=== PATIENT | male | born 1940 | race Caucasian/White ===

== ENCOUNTER 2016-09-14 11:06 | Emergency (ER) | payer MEDICARE, BC ==
[2016-09-14 11:22] VITALS: BP 140/64
--- NOTE | 2016-09-14 12:11 | EDM.PDOC ---
ED HPI GENERAL MEDICAL PROBLEM - General Chief Complaint: Back Pain or Injury Stated Complaint: BACK PAIN Time Seen by Provider: 09/14/16 11:45 Source of Information: Reports: Patient, Family History Limitations: Reports: No Limitations - History of Present Illness INITIAL COMMENTS - FREE TEXT/NARRATIVE: 76-year-old male was bending forward this morning and felt a moderate pop in his lower left back and it was very painful. It has settled down some, no numbness down his leg and no incontinence. This has been a recurring problem over the past several months. The pain was particularly bad this morning and he was wondering if he could get something to help. He already takes Aleve once daily. He also participates in physical therapy. Onset: Sudden Location: Reports: Back (Low left lumbar area) Left Lower Back Pain Score (Numeric/FACES): 10 - Related Data Allergies Allergy/AdvReac Type Severity Reaction Status Date / Time diagnostic x ray materials Allergy Nausea and Uncoded 09/14/16 11:23 Vomiting shellfish Allergy Nausea and Uncoded 09/14/16 11:23 Vomiting Home Meds: Home Meds Acetaminophen/Diphenhydramine [Acetaminophen-Diphenhyd 500-25] 1 tab PO PRN [History] Aspirin 81 mg PO DAILY 10/08/13 [History] Atenolol [Tenormin] 50 mg PO DAILY 10/08/13 [History] Fish Oil/Borage/Flax/Om3,6,9#1 [[place] 3-6-9 Complex Softgel] 2,000 mg PO DAILY 10/08/13 [History] Multivit with Calcium,Iron,Min [One Daily Maximum] 1 each PO DAILY 10/08/13 [ History] Naproxen Sodium [Aleve] 2 tab PO DAILY PRN 10/08/13 [History] Simvastatin 40 mg PO DAILY 10/08/13 [History] Cholecalciferol (Vitamin D3) [Vitamin D3] 1,000 unit PO DAILY 10/10/13 [History] Fluticasone Propionate [Flonase Allergy Relief] 1 dose IRMA ASDIRECTED 09/14/16 [ History] Meclizine [Antivert] 25 mg PO ASDIRECTED 09/14/16 [History] Naltrexone 25 mg PO BID 09/14/16 [History] Rutin 250 mg PO DAILY 09/14/16 [History] buPROPion [buPROPion XL] 1 tab PO DAILY 09/14/16 [History] Past Medical History HEENT History: Reports: Hard of Hearing, Impaired Vision Cardiovascular History: Reports: High Cholesterol, Hypertension Respiratory History: Reports: Sleep Apnea Musculoskeletal History: Reports: Back Pain, Chronic - Past Surgical History HEENT Surgical History: Reports: Other (See Below) Other HEENT Surgeries/Procedures: left ear drum surgery GI Surgical History: Reports: Colonoscopy Social & Family History - Tobacco Use Smoking Status *Q: Never Smoker Years of Tobacco use: 30 Used Tobacco, but Quit: Yes Month Tobacco Last Used: March Second Hand Smoke Exposure: No - Alcohol Use Days Per Week of Alcohol Use: 5 Number of Drinks Per Day: 1 Total Drinks Per Week: 5 - Recreational Drug Use Recreational Drug Use: No ED ROS GENERAL - Review of Systems Review Of Systems: See Below Constitutional: Denies: Fever, Chills HEENT: Reports: No Symptoms Respiratory: Denies: Shortness of Breath Cardiovascular: Denies: Chest Pain Musculoskeletal: Reports: Back Pain Neurological: Reports: Other (Been having some balance issues, worked up for Parkinson's) ED EXAM,LOWER BACK PAIN/INJURY - Physical Exam Exam: See Below Exam Limited By: No Limitations General Appearance: Alert, No Apparent Distress Respiratory/Chest: No Respiratory Distress, Lungs Clear Cardiovascular: Regular Rate, Rhythm Back Exam: Paraspinal Tenderness (Some paraspinal tenderness to palpation over the left lumbar area, worse with rotation against resistance to the right. No lower extremity symptoms, radiculopathy or deficits) Course - Vital Signs Last Recorded V/S: Last Vital Signs Temp 96.8 F 09/14/16 11:22 Pulse 61 09/14/16 11:22 Resp 16 09/14/16 11:22 BP 140/64 09/14/16 11:22 Pulse Ox 95 09/14/16 11:22 - Re-Assessments/Exams Free Text/Narrative Re-Assessment/Exam: 09/14/16 12:08 Patient can continue his anti-inflammatory treatment, was given 15 hydrocodone to use sparingly for extra pain control and should try to stay active. He will recheck tomorrow if worsening, especially if he develops radiculopathy or deficits and we discussed those symptoms. Departure - Departure Time of Disposition: 12:19 Disposition: Home, Self-Care 01 Condition: Good Clinical Impression: Acute exacerbation of chronic low back pain - Discharge Information Instructions: Back Pain, Adult, [id number] Referrals: Dulce Sage MD [Primary Care Provider] - Forms: ED Department Discharge Care Plan Goals: Continue your regular medications and add stronger pain medication sparingly if needed. Increase activity as tolerated, and return for recheck if worsening at any time.
== END 2016-09-14 12:19 | disposition home or self-care (01) ==
LOC: JP.ED 11:06
DX: G89.29 Other chronic pain (principal); M54.5 Low back pain; I10 Essential (primary) hypertension; E78.00 Pure hypercholesterolemia, unspecified; Z79.82 Long term (current) use of aspirin; Z79.899 Other long term (current) drug therapy; Z91.013 Allergy to seafood; Z88.8 Allergy status to other drugs, medicaments and biological substances
CPT/HCPCS: 99283

== ENCOUNTER 2016-10-05 10:33 | Emergency (ER) | payer MEDICARE, BC ==
[2016-10-05 10:49] VITALS: BP 139/73
[2016-10-05] MEDS ORDERED: HYDROmorphone 1 MG/ML Syringe IM ONE (11:18)
[2016-10-05] MEDS ORDERED: Cyclobenzaprine 10 MG Tab PO ONE (11:19)
--- NOTE | 2016-10-05 11:23 | EDM.PDOC ---
ED HPI GENERAL MEDICAL PROBLEM - General Chief Complaint: Back Pain or Injury Stated Complaint: BACK PAIN Time Seen by Provider: 10/05/16 11:23 Source of Information: Reports: Patient, Family History Limitations: Reports: No Limitations - History of Present Illness INITIAL COMMENTS - FREE TEXT/NARRATIVE: pt arrived with increased pain in the lower back. he has not had recent trauma to the back. He was doing his exercises and turned the wrong way. He has alot of pain below the beltline on the rt side. Onset: Today, Other (pt did have similar pain about 2 weeks ago. ) Duration: Hour(s):, Getting Worse Location: Reports: Back Severity: Moderate Associated Symptoms: Reports: No Other Symptoms, Other (pt does not have weakness in his legs or tingling. ) Lower Back Pain Score (Numeric/FACES): 10 - Related Data Allergies Allergy/AdvReac Type Severity Reaction Status Date / Time diagnostic x ray materials Allergy Nausea and Uncoded 10/05/16 10:52 Vomiting shellfish Allergy Nausea and Uncoded 10/05/16 10:52 Vomiting Home Meds: Home Meds Acetaminophen/Diphenhydramine [Acetaminophen-Diphenhyd 500-25] 1 tab PO BEDTIME PRN 10/08/13 [History] Aspirin 81 mg PO DAILY 10/08/13 [History] Atenolol [Tenormin] 50 mg PO BID 10/08/13 [History] Fish Oil/Borage/Flax/Om3,6,9#1 [[place] 3-6-9 Complex Softgel] 2,000 mg PO DAILY 10/08/13 [History] Naproxen Sodium [Aleve] 2 tab PO DAILY PRN 10/08/13 [History] Simvastatin 40 mg PO DAILY 10/08/13 [History] Cholecalciferol (Vitamin D3) [Vitamin D3] 1,000 unit PO DAILY 10/10/13 [History] Meclizine [Antivert] 25 mg PO ASDIRECTED 09/14/16 [History] Naltrexone 25 mg PO BID 09/14/16 [History] Rutin 250 mg PO DAILY 09/14/16 [History] buPROPion [buPROPion XL] 1 tab PO DAILY 09/14/16 [History] Past Medical History HEENT History: Reports: Hard of Hearing, Impaired Vision Cardiovascular History: Reports: High Cholesterol, Hypertension Respiratory History: Reports: Sleep Apnea Musculoskeletal History: Reports: Back Pain, Chronic - Infectious Disease History Infectious Disease History: Reports: Chicken Pox, Measles, Mumps - Past Surgical History HEENT Surgical History: Reports: Other (See Below) Other HEENT Surgeries/Procedures: left ear drum surgery GI Surgical History: Reports: Colonoscopy Social & Family History - Tobacco Use Smoking Status *Q: Former Smoker Years of Tobacco use: 30 Used Tobacco, but Quit: Yes Month Tobacco Last Used: Janurary Tobacco Use Comment: Quit in 1975 Second Hand Smoke Exposure: No - Caffeine Use Caffeine Use: Reports: Coffee, Soda - Alcohol Use Days Per Week of Alcohol Use: 7 Number of Drinks Per Day: 1 Total Drinks Per Week: 7 - Recreational Drug Use Recreational Drug Use: No ED ROS GENERAL - Review of Systems Review Of Systems: See Below Constitutional: Reports: No Symptoms HEENT: Reports: No Symptoms Respiratory: Reports: No Symptoms Cardiovascular: Reports: No Symptoms Endocrine: Reports: No Symptoms GI/Abdominal: Reports: No Symptoms : Reports: No Symptoms Musculoskeletal: Reports: Other (pt is having severe lower back pain just below the belt line. He has more pain on the rt side. He does not have numbness or tingling going down the rt leg. ) ED EXAM,LOWER BACK PAIN/INJURY - Physical Exam Exam: See Below Text/Narrative:: pt has pain in the rt lumbar area just below the belt line. Exam Limited By: No Limitations General Appearance: Alert, Anxious, Moderate Distress Ears: Normal External Exam Nose: Normal Inspection Throat/Mouth: Normal Inspection Head: Atraumatic Neck: Normal Inspection Respiratory/Chest: No Respiratory Distress Cardiovascular: Normal Peripheral Pulses GI/Abdominal: Normal Bowel Sounds (Male) Exam: Deferred Rectal (Males) Exam: Deferred Back Exam: Other (pt has tenderness at the l2-l3 area. He has a positive straight leg raising on the rt side. ) Course - Vital Signs Last Recorded V/S: Last Vital Signs Temp 34.8 C L 10/05/16 11:03 Pulse 60 10/05/16 11:03 Resp 16 10/05/16 11:03 BP 139/73 10/05/16 11:03 Pulse Ox 97 10/05/16 11:03 - Orders/Labs/Meds Orders: Active Orders 24 hr Category Date Time Status Lumbar Spine Min 4V [CR] Stat Exams 10/05/16 11:20 Taken Meds: Medications Discontinued Medications Generic Name Dose Route Start Last Admin Trade Name Jevon PRN Reason Stop Dose Admin Cyclobenzaprine HCl 10 mg 10/05/16 11:19 10/05/16 11:28 Flexeril PO 10/05/16 11:20 10 mg ONETIME ONE Administration Hydromorphone HCl 1 mg 10/05/16 11:18 10/05/16 11:28 Dilaudid IM 10/05/16 11:19 1 mg ONETIME ONE Administration - Re-Assessments/Exams Free Text/Narrative Re-Assessment/Exam: 10/05/16 12:40 pt arrived with pain in the lumbar area just below the belt line. He has no known injury. 10/05/16 12:51 Departure - Departure Time of Disposition: 12:42 Disposition: Home, Self-Care 01 Condition: Fair Clinical Impression: Arthritis, lumbar spine - Discharge Information Forms: ED Department Discharge Care Plan Goals: heat and ice to the area, appt with Dr Jaimes in 4-5 days, flexeril 10mg hs, motrin 600mg qid, norco 5/325 q6h prn for pain. - My Orders Last 24 Hours: My Active Orders 10/05/16 11:20 Lumbar Spine Min 4V [CR] Stat - Assessment/Plan Last 24 Hours: My Active Orders 10/05/16 11:20 Lumbar Spine Min 4V [CR] Stat
--- NOTE | 2016-10-05 12:54 | CR ---
Lumbar Spine Min 4V INDICATION: severe lumbar pain. FINDINGS: 5 lumbar type vertebral bodies. Diffuse degenerative endplate hypertrophic changes. Modera te degenerative arthritis throughout the lumbar facet joints. Arterial calcifications. Moderate stoo l throughout colon.
== END 2016-10-05 13:08 | disposition home or self-care (01) ==
LOC: JP.ED 10:33
DX: M46.96 Unspecified inflammatory spondylopathy, lumbar region (principal); E78.00 Pure hypercholesterolemia, unspecified; I10 Essential (primary) hypertension; Z87.891 Personal history of nicotine dependence; Z79.899 Other long term (current) drug therapy; Z79.82 Long term (current) use of aspirin; Z91.013 Allergy to seafood; Z91.09 Other allergy status, other than to drugs and biological substances
CPT/HCPCS: 72110; 96372; 99284; A9270; J1170; 99283

== ENCOUNTER 2019-07-21 22:24 | Inpatient (IN) | payer BC, MEDICARE ==
--- NOTE | 2019-07-21 23:18 | EDM.PDOC ---
ED HPI GENERAL MEDICAL PROBLEM - General Chief Complaint: Abdominal Pain Stated Complaint: RIGHT SIDE PAIN Time Seen by Provider: 07/21/19 23:09 Source of Information: Reports: Patient History Limitations: Reports: No Limitations - History of Present Illness INITIAL COMMENTS - FREE TEXT/NARRATIVE: Patient presents describing 24 hours of right lower quadrant pain which is unremitting. It began gradually yesterday afternoon, 19 July. He has a history of Parkinson's disease and does get constipation from time to time. He got a dose of MiraLAX yesterday and today with a small bowel movement earlier today but no change in his pain. He rates his pain a 7/10 at this time and it is focused in the right lower quadrant region. There is a lesser intensity of pain along the right flank and the right upper quadrant. No nausea or vomiting. He doesn't feel warm himself but was noted to have a temperature in the mid 99's. Because of persistence of symptoms, he was concerned this might be appendicitis. Onset: Gradual Onset Date: 07/20/19 Duration: Day(s): (Two) Location: Reports: Abdomen Quality: Reports: Ache, Burning, Sharp Severity: Moderate Improves with: Reports: None Worsens with: Reports: Movement Associated Symptoms: Reports: No Other Symptoms Right Lower Abdomen Pain Score (Numeric/FACES): 7 - Related Data Allergies Allergy/AdvReac Type Severity Reaction Status Date / Time Iodinated Contrast Media AdvReac Nausea and Verified 07/21/19 22:53 [Iodinated Contrast- Oral Vomiting and IV Dye] shellfish derived AdvReac Nausea and Verified 07/21/19 22:53 Vomiting Home Meds: Home Meds Aspirin 81 mg PO DAILY 10/08/13 [History] Fish Oil/Borage/Flax/Om3,6,9 1 [[place] 3-6-9 Complex Softgel] 2,000 mg PO DAILY 10/08/13 [History] Simvastatin 40 mg PO DAILY 10/08/13 [History] Cholecalciferol (Vitamin D3) [Vitamin D3] 5,000 unit PO DAILY 10/10/13 [History] Rutin 250 mg PO DAILY 09/14/16 [History] buPROPion [buPROPion XL] 1 tab PO DAILY 09/14/16 [History] Acetaminophen [Tylenol Extra Strength] 2 tab PO Q4H PRN 10/19/16 [History] Carbidopa/Levodopa [Sinemet 25-100 mg Tablet] 1 tab PO DAY 07/21/19 [History] Lutein 1 tab PO DAILY 07/21/19 [History] Memantine [Namenda] 1 tab PO BID 07/21/19 [History] Rivastigmine Tartrate [Rivastigmine] 1 tab PO BID 07/21/19 [History] atenoloL [Atenolol] 50 mg PO BID 07/21/19 [History] clonazePAM [Clonazepam] 1 tab PO BEDTIME 07/21/19 [History] Past Medical History HEENT History: Reports: Hard of Hearing, Impaired Vision Cardiovascular History: Reports: High Cholesterol, Hypertension Respiratory History: Reports: Sleep Apnea Musculoskeletal History: Reports: Back Pain, Chronic - Infectious Disease History Infectious Disease History: Reports: Chicken Pox, Measles, Mumps - Past Surgical History HEENT Surgical History: Reports: Other (See Below) Other HEENT Surgeries/Procedures: left ear drum surgery GI Surgical History: Reports: Colonoscopy Social & Family History - Tobacco Use Smoking Status *Q: Former Smoker Years of Tobacco use: 20 Packs/Tins Daily: 1 Used Tobacco, but Quit: Yes Month/Year Tobacco Last Used: 1995 - Caffeine Use Caffeine Use: Reports: Coffee, Soda, Tea - Recreational Drug Use Recreational Drug Use: No ED ROS GENERAL - Review of Systems Review Of Systems: See Below Constitutional: Reports: Fever, Malaise. Denies: Night Sweats Respiratory: Reports: No Symptoms Cardiovascular: Reports: No Symptoms GI/Abdominal: Reports: Abdominal Pain, Constipation. Denies: Diarrhea, Distension : Reports: No Symptoms Skin: Reports: No Symptoms Neurological: Reports: No Symptoms Hematologic/Lymphatic: Denies: Easy Bleeding, Easy Bruising ED EXAM, GI/ABD - Physical Exam Exam: See Below Exam Limited By: No Limitations General Appearance: Alert, Mild Distress Head: Atraumatic Neck: Normal Inspection Respiratory/Chest: No Respiratory Distress, Lungs Clear Cardiovascular: Regular Rate, Rhythm GI/Abdominal Exam: Normal Bowel Sounds, Guarding, Tender (Right lower quadrant.) . No: Distended, Rigid Extremities: Normal Inspection Neurological: Alert, Oriented, Other (Minimal tremor in fingers of the left hand.) Course - Vital Signs Last Recorded V/S: Last Vital Signs Temp 37.7 C 04/27/20 22:51 Pulse 69 07/21/19 22:51 Resp 16 07/21/19 22:51 BP 148/60 H 07/21/19 22:51 Pulse Ox 95 07/21/19 22:51 - Orders/Labs/Meds Orders: Active Orders 24 hr Category Date Time Status Abdomen Pelvis w Cont [CT] Stat Exams 07/21/19 23:21 Ordered C-REACTIVE PROTEIN [CHEM] Stat Lab 07/21/19 23:20 Ordered CBC WITH AUTO DIFF [HEME] Stat Lab 07/21/19 23:20 Ordered COMPREHENSIVE METABOLIC PN,CMP [CHEM] Stat Lab 07/21/19 23:20 Ordered Sodium Chloride 0.9% [Saline Flush] Med 07/21/19 23:22 Ordered 10 ml FLUSH ASDIRECTED PRN Saline Lock Insert [OM.PC] Routine Oth 07/21/19 23:22 Ordered Medication Orders Sodium Chloride (Saline Flush) 10 ml FLUSH ASDIRECTED PRN PRN Reason: Keep Vein Open Last Admin: 07/21/19 23:40 Dose: 10 ml Meds: Medications Generic Name Dose Route Start Last Admin Trade Name Freq PRN Reason Stop Dose Admin Sodium Chloride 10 ml 07/21/19 23:22 07/21/19 23:40 Saline Flush FLUSH 10 ml ASDIRECTED PRN Administration Keep Vein Open Discontinued Medications Generic Name Dose Route Start Last Admin Trade Name Freq PRN Reason Stop Dose Admin Fentanyl 50 mcg 07/21/19 23:20 07/21/19 23:40 Sublimaze IVPUSH 07/21/19 23:21 50 mcg ONETIME ONE Administration - Re-Assessments/Exams Free Text/Narrative Re-Assessment/Exam: 07/21/19 23:25 Patient will be given fentanyl 50 g and see what that does for his pain. CT scanning is pending. 07/22/19 02:14 CT scan eventually was completed and shows appendicitis of the tip of the appendix, the remainder of the proximal appendix is normal in appearance I discussed his case with Dr. Alejandro, the on-call surgeon. Patient will be admitted and have surgery some time on Sunday, 21 July. Initial antibiotic dosing will be done in the emergency department. He was transferred to the floor in stable condition. Departure - Departure Time of Disposition: 01:50 Disposition: Admitted As Inpatient 66 Condition: Fair Clinical Impression: Appendicitis Qualifiers: Appendicitis type: acute appendicitis Acute appendicitis type: unspecified acute appendicitis type Qualified Code(s): K35.80 - Unspecified acute appendicitis - Discharge Information Referrals: Samm Evans MD [Primary Care Provider] - Forms: ED Department Discharge Sepsis Event Note - Evaluation Sepsis Screening Result: No Definite Risk - Focused Exam Vital Signs: Vital Signs Temp Pulse Resp BP Pulse Ox 07/21/19 22:51 37.7 C 69 16 148/60 H 95 07/21/19 22:38 37.7 C 69 16 148/60 H 96 Date Exam was Performed: 07/21/19 Time Exam was Performed: 23:49 - My Orders Last 24 Hours: My Active Orders 07/21/19 23:20 C-REACTIVE PROTEIN [CHEM] Stat CBC WITH AUTO DIFF [HEME] Stat COMPREHENSIVE METABOLIC PN,CMP [CHEM] Stat 07/21/19 23:21 Abdomen Pelvis w Cont [CT] Stat 07/21/19 23:22 Sodium Chloride 0.9% [Saline Flush] 10 ml FLUSH ASDIRECTED PRN Saline Lock Insert [OM.PC] Routine - Assessment/Plan Last 24 Hours: My Active Orders 07/21/19 23:20 C-REACTIVE PROTEIN [CHEM] Stat CBC WITH AUTO DIFF [HEME] Stat COMPREHENSIVE METABOLIC PN,CMP [CHEM] Stat 07/21/19 23:21 Abdomen Pelvis w Cont [CT] Stat 07/21/19 23:22 Sodium Chloride 0.9% [Saline Flush] 10 ml FLUSH ASDIRECTED PRN Saline Lock Insert [OM.PC] Routine
[2019-07-21] MEDS ORDERED: fentaNYL 100 MCG/2 ML SDV IVPUSH ONE (23:20)
[2019-07-21] MEDS ORDERED: Sodium Chloride 0.9% 10 ML Syringe FLUSH PRN (23:22)
[2019-07-21] MEDS ORDERED: diphenhydrAMINE 50 MG/ML SDV IVPUSH ONE (23:57)
[2019-07-22] MEDS ORDERED: Iopamidol 612 MG/ML 500 ML Multipack Bottle IV ONE (01:09)
[2019-07-22] MEDS ORDERED: Sodium Chloride 0.9% 10 ML Syringe FLUSH PRN (01:10)
--- NOTE | 2019-07-22 01:40 | CRLCT ---
INDICATION: Right lower quadrant pain for the past 24 hours. Possible appendicitis. COMPARISON: Ultrasound of the abdomen limited from 10/04/2016 TECHNIQUE: CT examination of the abdomen and pelvis was performed with the uneventful intravenous administration of 135 cc of Isovue-300 while 3 mm thick axial sections were obtained from the lung bases through the pubic symphysis. Oral contrast was not administered. Please note that all CT scans at this facility use dose modulation, iterative reconstruction, and/or weight-based dosing when appropriate to reduce radiation dose to as low as reasonably achievable. FINDINGS: In the abdomen, the liver is seem to have multiple small cysts scattered throughout it, the largest in the anterior subcapsular superior medial segment of the left lobe, segment 4B, measuring 1.7 centimeters in diameter. These are of no clinical significance. The liver is otherwise normal in appearance. The spleen, pancreas, and adrenals are normal in appearance. There is malrotation of the right kidney, with rotation along the craniocaudal axis, with the renal pelvis facing laterally. There is no sign of hydronephrosis related to this malrotation. Incidental note is made of a few small cysts arising from the upper pole of the right kidney. The left kidney is normal in appearance. The gallbladder is normal in appearance. The abdominal aorta is normal in caliber with no sign of dilatation. There is no sign of retroperitoneal mass or adenopathy. The stomach, loops of small bowel, and colon in the abdomen are normal in appearance. There is a tiny fat containing periumbilical hernia. In the pelvis, the appendix is seen to have dilatation of the tip to 2.0 centimeters with thickening and enhancement of its chavez and moderate periappendiceal inflammation. The more proximal portion of the appendix is top normal in caliber at 8 millimeters. There is no sign of any periappendiceal fluid collection, extraluminal gas, free air, or free fluid in the abdomen or pelvis. The loops of small bowel and colon in the pelvis are normal in appearance. The prostate is prominently enlarged and has benign-appearing calcifications. It is otherwise normal in appearance. The urinary bladder is moderately distended and is otherwise normal in appearance. There is no sign of pelvic or inguinal mass or adenopathy. There is no sign of free air or free fluid in the abdomen or pelvis. There is mild linear density in the posterior lung base, consistent with atelectasis. The rest of the lung base is clear. The osseous structures are normal in appearance for the patient`s age. I discussed the findings of acute appendicitis with Dr. Shea at 0133 hours on 07/22/2019. IMPRESSION: CT of the abdomen shows numerous small cysts scattered throughout the liver of no clinical concern. 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 A few tiny cysts are seen in the right kidney of no clinical concern. CT of the pelvis shows acute appendicitis of the tip of the appendix with no sign of any abscess or perforation. Prominent enlargement of the prostate. Please note that all CT scans at this facility use dose modulation, iterative reconstruction, and/or weight-based dosing when appropriate to reduce radiation dose to as low as reasonably achievable. Dictated by Bacilio Roque MD @ Jul 22 2019 1:26AM Signed by Dr. Bacilio Roque @ Jul 22 2019 1:38AM
[2019-07-22] MEDS ORDERED: Sodium Chloride 0.9% 1,000 ML IV SCH (02:00)
[2019-07-22] MEDS ORDERED: Ondansetron 4 MG/2 ML SDV IVPUSH PRN (02:28)
[2019-07-22] MEDS ORDERED: Scopolamine 1.5 MG Transdermal Patch TOP PRN (02:28)
[2019-07-22] MEDS ORDERED: Promethazine 25 MG/ML SDV IV PRN (02:30)
[2019-07-22] MEDS ORDERED: diphenhydrAMINE 50 MG/ML SDV IVPUSH PRN (02:32)
[2019-07-22] MEDS ORDERED: Nicotine 14 MG/24 Hr Patch TRDERM PRN (02:33)
[2019-07-22] MEDS ORDERED: diphenhydrAMINE 25 MG Cap PO PRN (02:33)
[2019-07-22] MEDS ORDERED: fentaNYL 100 MCG/2 ML SDV IV PRN (02:36)
[2019-07-22] MEDS ORDERED: Piperacillin/Tazobactam/Dext 100 ML IV SCH (03:00)
[2019-07-22] MEDS ORDERED: Dextrose 5% in Water 100 ML ONE (03:44)
[2019-07-22] MEDS: Morphine 4 MG/ML Syringe IVPUSH PRN ×3 (03:47→19:24)
[2019-07-22] MEDS: Piperacillin/Tazobactam/Dext 3.375 GM in Premix Bag 1 BAG IV SCH ×3 (10:15→21:12)
[2019-07-22] MEDS: VERIFY SCOP PATCH TOP SCH (10:30)
[2019-07-22] MEDS: [UNRECOGNIZED DRUG - REMARK] TOP SCH (10:30)
[2019-07-22] MEDS: Sodium Chloride 0.9% 1,000 ML IV SCH ×2 (12:24→17:30)
[2019-07-22] MEDS ORDERED: fentaNYL 250 MCG/5 ML SDV ONE (14:06)
[2019-07-22] MEDS ORDERED: Propofol 200 MG/20 ML SDV ONE (14:06)
[2019-07-22] MEDS ORDERED: Glycopyrrolate 0.2 MG/ML 5 ML MDV ONE (14:06)
[2019-07-22] MEDS ORDERED: Dexamethasone 4 MG/ML SDV ONE (14:06)
[2019-07-22] MEDS ORDERED: Ondansetron 4 MG/2 ML SDV ONE (14:06)
[2019-07-22] MEDS ORDERED: Succinylcholine 200 MG/10 ML MDV ONE (14:06)
[2019-07-22] MEDS ORDERED: Rocuronium 50 MG/5 ML Vial ONE (14:06)
[2019-07-22] MEDS ORDERED: Neostigmine Methylsulfate 1 MG/ML 5 ML Syringe ONE (14:06)
[2019-07-22] MEDS: Bupivacaine 0.5%/EPINEPHrine 1:200,000 50 ML MDV ONE ×2 (14:35→15:10)
--- NOTE | 2019-07-22 16:11 | CONS ---
DATE OF SERVICE: 07/22/2019 REFERRING PHYSICIAN: CONSULTING PHYSICIAN: Loyd Alejandro MD REASON FOR CONSULTATION: Abdominal pain. HISTORY OF PRESENT ILLNESS: This is a gentleman who was seen in the emergency room due to right lower quadrant abdominal pain. This is approximately 24-hour history. This is worse. His pain is rated as 8 to 9/10. There is not any associated nausea or vomiting. The patient had a low-grade fever at home. PAST MEDICAL HISTORY: 1. Parkinson disease. 2. Hypertension. 3. Hypercholesterolemia. 4. Back pain. 5. Measles. 6. Mumps. 7. Eardrum surgery to the left. 8. History of colonoscopy. 9. Sleep apnea. SOCIAL HISTORY: He is not a smoker. FAMILY HISTORY: Noncontributory. REVIEW OF SYSTEMS: GENERAL: As described above. RESPIRATORY: No shortness of breath. CARDIOVASCULAR: No chest pain. GASTROINTESTINAL: Chronic history of constipation. GENITOURINARY: No dysuria. SKIN: No symptoms. NEUROLOGICAL: History of Parkinson's. HEMATOLOGICAL: No significant bleeding issues. The remainder of systems are reviewed and negative. PHYSICAL EXAMINATION: VITAL SIGNS: Stable. Temperature 37.7. GENERAL: The patient is appropriate for condition. HEENT: Pupils are equal. NECK: Supple. LUNGS: Clear. CARDIOVASCULAR: Regular rhythm and rate. ABDOMEN: Mild pain with palpation, right lower quadrant. EXTREMITIES: Full range of motion. Strength 5/5. NEUROLOGIC: Oriented x3. PSYCHIATRIC: No gross depression. IMAGING DATA: I did review the CT scan which shows appendicitis. LABORATORY RESULTS: Show a white blood cell count of 15.1, creatinine is 1.1. ASSESSMENT: Appendicitis. PLAN: The patient will undergo laparoscopic appendectomy along with 24 hours approximately of antibiotics. We discussed risks, benefits, alternatives, and limitations including, but not limited to, infection, bleeding, and requirement for open surgery, reoperation, abscess formation, other risks not listed here. Loyd Alejandro MD /[id number]
[2019-07-22] MEDS ORDERED: ClonazePAM 0.5 MG Tab PO PRN (16:51)
[2019-07-22] MEDS: Carbidopa/Levodopa 25-100 MG Tab PO SCH ×2 (17:33→21:08)
[2019-07-22] MEDS: Memantine 10 MG Tab PO SCH (21:07)
[2019-07-22] MEDS: Atenolol 25 MG Tab PO SCH (21:08)
[2019-07-22] MEDS: Simvastatin 20 MG Tab PO SCH (21:09)
[2019-07-23] MEDS: Sodium Chloride 0.9% 1,000 ML IV SCH (01:58)
[2019-07-23] MEDS: Piperacillin/Tazobactam/Dext 3.375 GM in Premix Bag 1 BAG IV SCH ×4 (04:12→21:20)
[2019-07-23] MEDS: Carbidopa/Levodopa 25-100 MG Tab PO SCH ×4 (07:54→21:20)
[2019-07-23] MEDS: Memantine 10 MG Tab PO SCH ×2 (08:00→21:20)
[2019-07-23] MEDS: buPROPion 150 MG Tab.ER PO SCH (08:00)
[2019-07-23] MEDS: VERIFY SCOP PATCH TOP SCH (08:05)
[2019-07-23] MEDS: [UNRECOGNIZED DRUG - REMARK] TOP SCH (08:05)
[2019-07-23] MEDS: Atenolol 25 MG Tab PO SCH ×2 (08:14→21:25)
[2019-07-23] MEDS ORDERED: Acetaminophen/HYDROcodone 325-5 MG Tab PO PRN (08:22)
--- NOTE | 2019-07-23 09:09 | OR ---
DATE OF PROCEDURE: 07/22/2019 SURGEON: Loyd Alejandro MD PROCEDURE: 1. Laparoscopic appendectomy. 2. Umbilical hernia, non-incarcerated, non-strangulated. FINDINGS: Appendicitis, moderate, with some fluid noted but no definitive abscess. COMPLICATIONS: None. COP BREAKER: None. PREOPERATIVE DIAGNOSIS: Appendicitis. POSTOPERATIVE DIAGNOSIS: Appendicitis. RISKS: Risks, benefits, alternatives, and limitations including, but not limited to, infection, bleeding, possibility of open surgery, injury to abdominal structures such as bowel or bladder, and other risks not listed here were explained to the patient, who wished to proceed. PROCEDURE IN DETAIL: The patient was placed in supine position. A supraumbilical curvilinear incision was made. A Veress needle was used to enter the abdomen without abnormality and a drop test was performed without abnormality. Two additional 5 mm ports were entered under direct visualization. The appendix was found to be wrapped with omentum. This was carefully dissected and the appendix was identified and transected. This had tore during removal but was not perforated prior to the surgery. This was delivered through the abdomen. 2 L of irrigation was then used to irrigate the abdomen. The appendix had been stapled off, along with its tail, with a philippe load stapler. A 10 flat Khari-Sneed drain was placed in right lower quadrant after liver, pelvis, and other areas were inspected for fluid, suctioned, and irrigated. The air was removed. The umbilical hernia itself was closed with #1 Vicryl in an interrupted fashion. 3-0 Vicryl was used to close the subcutaneous tissues and 4-0 was used to close the skin after irrigation. The patient tolerated procedure well. Loyd Alejandro MD /[id number]
--- NOTE | 2019-07-23 09:46 | OR ---
DATE OF PROCEDURE: 07/22/2019 SURGEON: Loyd Alejandro MD PROCEDURE: Transversus abdominis plane block, bilaterally. COMPLICATIONS: None. CHIP PERSON: None. RISKS: Risks, benefits, alternatives, and limitations including, but not limited to, infection, bleeding, and injury to abdominal structures were explained to the patient, who wished to proceed. PROCEDURE IN DETAIL: The patient was placed in supine position. The right side was addressed first. Using a 13 megahertz ultrasound probe, the transversus plane was identified, and 80% of the solution was injected. The other side was then performed in the same manner, same fashion, same technique, in the same sequence, using the same equipment. The patient tolerated the procedure well. Loyd Alejandro MD /[id number]
--- NOTE | 2019-07-23 12:20 | PN ---
DATE OF SERVICE: 07/23/2019 SUBJECTIVE: The patient is doing better today. Pain is well controlled. No nausea, vomiting, shortness of breath, or chest pain. White blood cell count has decreased. OBJECTIVE: VITAL SIGNS: Stable. CARDIOVASCULAR: Regular rhythm and rate. RESPIRATORY: Lungs are clear to auscultation bilaterally. ABDOMEN: Incision healing well. ASSESSMENT: Status post laparoscopic appendectomy. PLAN: We will continue the IV antibiotics at this time. We will recheck in the a.m. We will remove his Teran catheter today and saline lock him. Loyd Alejandro MD /[id number]
[2019-07-23] MEDS: Acetaminophen 325 MG Tab PO PRN ×2 (16:16→21:23)
[2019-07-23] MEDS ORDERED: Sodium Chloride 0.9% 1,000 ML IV ONE (19:43)
[2019-07-23] MEDS: Tamsulosin 0.4 MG Cap.ER PO SCH (21:20)
[2019-07-23] MEDS: Simvastatin 20 MG Tab PO SCH (21:20)
[2019-07-23] MEDS: Magnesium Hydroxide 400 MG/5 ML Susp 30 ML Cup PO PRN (21:23)
[2019-07-24] MEDS: Piperacillin/Tazobactam/Dext 3.375 GM in Premix Bag 1 BAG IV SCH ×4 (03:06→21:20)
[2019-07-24] MEDS: Atenolol 25 MG Tab PO SCH ×2 (08:00→21:17)
[2019-07-24] MEDS: VERIFY SCOP PATCH TOP SCH (08:01)
[2019-07-24] MEDS: [UNRECOGNIZED DRUG - REMARK] TOP SCH (08:01)
[2019-07-24] MEDS: Acetaminophen 325 MG Tab PO PRN (08:07)
[2019-07-24] MEDS: buPROPion 150 MG Tab.ER PO SCH (08:08)
[2019-07-24] MEDS: Memantine 10 MG Tab PO SCH ×2 (08:08→21:18)
[2019-07-24] MEDS: Carbidopa/Levodopa 25-100 MG Tab PO SCH ×4 (08:09→21:15)
[2019-07-24] MEDS ORDERED: Docusate Sodium 100 MG Cap PO PRN (08:55)
[2019-07-24] MEDS: Magnesium Hydroxide 400 MG/5 ML Susp 30 ML Cup PO PRN (09:06)
--- NOTE | 2019-07-24 11:38 | PN ---
DATE OF SERVICE: 07/24/2019 SUBJECTIVE: The patient remains stable today. No nausea, vomiting, shortness of breath, or chest pain. He is having some problems urinating. He was straight catheterized last night, did start him on Flomax. OBJECTIVE: VITAL SIGNS: Vital signs are stable. CARDIOVASCULAR: Regular rhythm and rate. RESPIRATORY: Lungs are clear to auscultation bilaterally. SKIN: Incision healing well. ASSESSMENT: Status post laparoscopic appendectomy. PLAN: Continue antibiotics at this time. We will recheck his white count in the morning. We will place Teran catheter if he requires to get straight catheterization again. Recheck in a.. Loyd Alejandro MD /[id number]
[2019-07-24] MEDS: Simvastatin 20 MG Tab PO SCH (21:17)
[2019-07-24] MEDS: Tamsulosin 0.4 MG Cap.ER PO SCH (21:18)
[2019-07-25] MEDS: Morphine 4 MG/ML Syringe IVPUSH PRN (04:05)
[2019-07-25] MEDS: Piperacillin/Tazobactam/Dext 3.375 GM in Premix Bag 1 BAG IV SCH (04:09)
[2019-07-25] MEDS: Carbidopa/Levodopa 25-100 MG Tab PO SCH (07:32)
[2019-07-25 07:40] VITALS: BP 158/64
[2019-07-25] MEDS: Memantine 10 MG Tab PO SCH (09:21)
[2019-07-25 09:22] VITALS: PULSE 60
[2019-07-25] MEDS: Atenolol 25 MG Tab PO SCH (09:22)
[2019-07-25] MEDS: buPROPion 150 MG Tab.ER PO SCH (09:22)
--- NOTE | 2019-07-25 11:18 | DISCH ---
DISCHARGE DIAGNOSIS: Appendicitis. SUMMARY OF HOSPITAL COURSE: A pleasant 79-year-old male who underwent uneventful laparoscopic appendectomy. The patient remained until postop day #3 due to IV antibiotic usage/requirement. Prior to discharge, his pain was well controlled. He had no nausea, vomiting, shortness of breath, or chest pain. He was afebrile and had a normal white blood cell count. FOLLOWUP: With Surgery in 7 to 14 days. DISCHARGE MEDICATIONS: The same medications as he was admitted on. ACTIVITY: No lifting greater than 30 pounds x30 days. DISCHARGE DIET: As tolerated.
--- NOTE | 2019-07-25 12:19 | PN ---
DATE OF SERVICE: 07/25/2019 SUBJECTIVE: The patient is doing very well today. Pain is absent. No nausea, vomiting, shortness of breath, or chest pain. He is having bowel movements. OBJECTIVE: VITAL SIGNS: Stable. He is afebrile. CARDIOVASCULAR: Regular rhythm and rate. RESPIRATORY: Lungs clear to auscultation bilaterally. SKIN: Incisions are healing well. ASSESSMENT: Status post laparoscopic appendectomy. PLAN: The patient to be discharged today. He has a normal white blood cell count. No fever. No drain output, except for some serosanguineous fluid. Please see discharge summary for further details. Loyd Alejandro MD /[id number]
== END 2019-07-25 10:00 | disposition home or self-care (01) | DRG 343 ==
LOC: JP.ED 22:24 → JP.ICU 07-22 01:54 → JP.MS 07-22 15:34
PROVIDERS: ADMIT Surgery; ATTEND Surgery
PROC: 0DTJ4ZZ Resection of Appendix, Percutaneous Endoscopic Approach (ICD-10-PCS; principal; 2019-07-22)
PROC: 0WQF4ZZ Repair Abdominal Wall, Percutaneous Endoscopic Approach (ICD-10-PCS; 2019-07-22)
DX: K37 Unspecified appendicitis (principal); K42.9 Umbilical hernia without obstruction or gangrene; H54.7 Unspecified visual loss; H91.90 Unspecified hearing loss, unspecified ear; E78.00 Pure hypercholesterolemia, unspecified; I10 Essential (primary) hypertension; G47.30 Sleep apnea, unspecified; G89.29 Other chronic pain; M54.9 Dorsalgia, unspecified; G20 Parkinson's disease; Z91.09 Other allergy status, other than to drugs and biological substances; Z91.013 Allergy to seafood; Z79.82 Long term (current) use of aspirin; Z79.899 Other long term (current) drug therapy; Z87.891 Personal history of nicotine dependence
CPT/HCPCS: 36415; 74177; 80053; 85025; 86140; 96374; 96375; 99284; 99285; J1200; J3010; J7050; Q9967; 51701; 80048; 85027; 87070; 87075; 87077; 87186; 87205; 88304; 97110-GP; 97161-GP; A9270-GY; J0171; J0330; J1100; J2270; J2405; J2543; J2704; J2710; J2795; J3490; J7030

== ENCOUNTER → 2021-12-26 | Emergency (ER) | payer MEDICARE | LOC: JP.ED 10:34 | DX: R04.0 Epistaxis (principal) | CPT/HCPCS: 99283 ==

== ENCOUNTER 2022-01-12 12:56 | Inpatient (IN) | payer MEDICARE ==
[2022-01-12] MEDS ORDERED: Sodium Chloride 0.9% 1,000 ML IV SCH (14:00)
[2022-01-12 15:00] LABS: ESTIMATED GFR 88 mL/min (>60)
[2022-01-12] MEDS ORDERED: diphenhydrAMINE 50 MG/ML SDV IVPUSH ONE (15:42)
[2022-01-12] MEDS ORDERED: Ondansetron 4 MG/2 ML SDV IVPUSH ONE (15:42)
[2022-01-12] MEDS ORDERED: Sodium Chloride 0.9% 10 ML Syringe FLUSH PRN (16:58)
[2022-01-12] MEDS ORDERED: Sodium Chloride 0.9% 75 ML IV SCH (17:00)
[2022-01-12] MEDS ORDERED: Iopamidol 755 Mg/ML 100 ML Bottle IV SCH (17:00)
[2022-01-12] MEDS ORDERED: LORazepam 2 MG/ML SDV IV PRN (20:36)
[2022-01-12] MEDS ORDERED: oxyCODONE 5 MG Tab PO PRN (20:36)
[2022-01-12] MEDS ORDERED: Docusate Sodium 100 MG Cap PO PRN (20:36)
[2022-01-12] MEDS ORDERED: Morphine 2 MG/ML SYRINGE IVPUSH PRN (20:36)
[2022-01-12] MEDS ORDERED: Ondansetron 4 MG/2 ML SDV IV PRN (20:36)
[2022-01-12] MEDS ORDERED: Albuterol 0.083% 2.5 MG/3 ML Neb Soln NEB PRN (20:36)
[2022-01-12] MEDS ORDERED: Bisacodyl 5 MG Tab PO PRN (20:36)
[2022-01-12] MEDS ORDERED: Acetaminophen 325 MG Tab PO PRN (20:36)
[2022-01-12] MEDS ORDERED: Ondansetron 4 MG Tab.DIS PO PRN (20:36)
[2022-01-12] MEDS ORDERED: guaiFENesin 600 MG Tab.ER PO PRN (20:36)
[2022-01-12] MEDS ORDERED: Enoxaparin 100 MG/1 ML Syringe SUBCUT SCH (21:00)
[2022-01-12] MEDS ORDERED: Pantoprazole 40 MG Vial IV SCH (21:00)
[2022-01-12] MEDS ORDERED: Donepezil 10 MG Tab PO SCH (21:00)
[2022-01-12] MEDS: Carbidopa/Levodopa 50-200 MG Tab.ER PO SCH (21:18)
[2022-01-12] MEDS: Donepezil 10 MG Tab PO SCH (21:18)
[2022-01-12] MEDS: Latanoprost 0.005% Ophth Soln 2.5 ML Bottle EYELF SCH (21:19)
[2022-01-12] MEDS: ClonazePAM 0.5 MG Tab PO SCH (21:19)
[2022-01-12] MEDS: Atenolol 25 MG Tab PO SCH (21:27)
[2022-01-12] MEDS: Memantine 10 MG Tab PO SCH (21:28)
[2022-01-12] MEDS: Sodium Chloride 0.9% 1,000 ML IV SCH (21:31)
[2022-01-12] MEDS: Ipratropium 0.06% Nasal Spray 15 ML Bottle NAS SCH (22:24)
[2022-01-12] MEDS: Carbidopa/Levodopa 25-100 MG Tab PO SCH (23:12)
[2022-01-13] MEDS: Sodium Chloride 0.9% 1,000 ML IV SCH (07:13)
[2022-01-13] MEDS: Ipratropium 0.06% Nasal Spray 15 ML Bottle NAS SCH ×4 (07:15→22:04)
[2022-01-13] MEDS: Multivitamins with Iron/Calcium/Folic Acid/Minerals Tab PO SCH (08:49)
[2022-01-13] MEDS: Atenolol 25 MG Tab PO SCH ×2 (08:49→20:34)
[2022-01-13] MEDS: Carbidopa/Levodopa 25-100 MG Tab PO SCH ×3 (08:50→17:36)
[2022-01-13] MEDS: Tamsulosin 0.4 MG Cap.ER PO SCH (08:50)
[2022-01-13] MEDS: Cholecalciferol (Vitamin D3) 25 MCG Tab PO SCH (08:50)
[2022-01-13] MEDS: atorvaSTATin 20 MG Tab PO SCH (08:50)
[2022-01-13] MEDS: FLAX PO SCH (08:50)
[2022-01-13] MEDS: [UNRECOGNIZED DRUG - OTHER] PO SCH (08:50)
[2022-01-13] MEDS: Memantine 10 MG Tab PO SCH ×2 (08:50→20:35)
[2022-01-13] MEDS: FISH OIL PO SCH (08:50)
[2022-01-13] MEDS: BORAGE PO SCH (08:50)
[2022-01-13] MEDS: RUTIN 500 MG PO SCH (08:51)
[2022-01-13] MEDS: Lutein [Lutein] 20 MG Capsule PO SCH (08:51)
[2022-01-13] MEDS ORDERED: RUTIN 500 MG PO SCH (09:00)
[2022-01-13] MEDS ORDERED: Lutein [Lutein] 20 MG Capsule PO SCH (09:00)
[2022-01-13] MEDS ORDERED: Polyethylene Glycol 3350 Powder 17 GM Packet PO PRN (09:10)
[2022-01-13] MEDS ORDERED: Loratadine 10 MG Tab PO PRN (09:11)
[2022-01-13] MEDS: Enoxaparin 100 MG/1 ML Syringe SUBCUT SCH ×2 (09:53→20:34)
[2022-01-13] MEDS: Warfarin 5 MG Tab PO SCH (12:32)
[2022-01-13] MEDS: Donepezil 10 MG Tab PO SCH (20:34)
[2022-01-13] MEDS: Latanoprost 0.005% Ophth Soln 2.5 ML Bottle EYELF SCH (20:40)
[2022-01-13] MEDS: ClonazePAM 0.5 MG Tab PO SCH (20:47)
[2022-01-13] MEDS: Carbidopa/Levodopa 50-200 MG Tab.ER PO SCH (20:48)
[2022-01-14] MEDS: Ipratropium 0.06% Nasal Spray 15 ML Bottle NAS SCH ×4 (05:22→21:12)
[2022-01-14] MEDS: Carbidopa/Levodopa 25-100 MG Tab PO SCH ×3 (06:52→17:18)
[2022-01-14] MEDS: Tamsulosin 0.4 MG Cap.ER PO SCH (08:14)
[2022-01-14] MEDS: Memantine 10 MG Tab PO SCH ×2 (08:14→21:04)
[2022-01-14] MEDS: Multivitamins with Iron/Calcium/Folic Acid/Minerals Tab PO SCH (08:14)
[2022-01-14] MEDS: Enoxaparin 100 MG/1 ML Syringe SUBCUT SCH ×2 (08:14→21:06)
[2022-01-14] MEDS: atorvaSTATin 20 MG Tab PO SCH (08:14)
[2022-01-14] MEDS: Cholecalciferol (Vitamin D3) 25 MCG Tab PO SCH (08:14)
[2022-01-14] MEDS: Atenolol 25 MG Tab PO SCH ×2 (08:14→21:05)
[2022-01-14] MEDS: Lutein [Lutein] 20 MG Capsule PO SCH (08:15)
[2022-01-14] MEDS: FISH OIL PO SCH (08:15)
[2022-01-14] MEDS: RUTIN 500 MG PO SCH (08:15)
[2022-01-14] MEDS: FLAX PO SCH (08:15)
[2022-01-14] MEDS: BORAGE PO SCH (08:15)
[2022-01-14] MEDS: [UNRECOGNIZED DRUG - OTHER] PO SCH (08:15)
[2022-01-14] MEDS: Warfarin 5 MG Tab PO SCH ×2 (11:56→12:01)
[2022-01-14] MEDS: Donepezil 10 MG Tab PO SCH (21:03)
[2022-01-14] MEDS: ClonazePAM 0.5 MG Tab PO SCH (21:06)
[2022-01-14] MEDS: Latanoprost 0.005% Ophth Soln 2.5 ML Bottle EYELF SCH (21:12)
[2022-01-14] MEDS: Carbidopa/Levodopa 50-200 MG Tab.ER PO SCH (21:12)
[2022-01-15] MEDS: Ipratropium 0.06% Nasal Spray 15 ML Bottle NAS SCH ×5 (05:02→22:08)
[2022-01-15] MEDS: Carbidopa/Levodopa 25-100 MG Tab PO SCH ×4 (07:50→17:04)
[2022-01-15] MEDS: FLAX PO SCH (08:46)
[2022-01-15] MEDS: Enoxaparin 100 MG/1 ML Syringe SUBCUT SCH ×2 (08:46→20:02)
[2022-01-15] MEDS: Atenolol 25 MG Tab PO SCH ×2 (08:46→20:03)
[2022-01-15] MEDS: Multivitamins with Iron/Calcium/Folic Acid/Minerals Tab PO SCH (08:46)
[2022-01-15] MEDS: BORAGE PO SCH (08:46)
[2022-01-15] MEDS: Tamsulosin 0.4 MG Cap.ER PO SCH (08:46)
[2022-01-15] MEDS: atorvaSTATin 20 MG Tab PO SCH (08:46)
[2022-01-15] MEDS: Lutein [Lutein] 20 MG Capsule PO SCH (08:46)
[2022-01-15] MEDS: Cholecalciferol (Vitamin D3) 25 MCG Tab PO SCH (08:46)
[2022-01-15] MEDS: [UNRECOGNIZED DRUG - OTHER] PO SCH (08:46)
[2022-01-15] MEDS: FISH OIL PO SCH (08:46)
[2022-01-15] MEDS: Memantine 10 MG Tab PO SCH ×2 (08:47→20:03)
[2022-01-15] MEDS: RUTIN 500 MG PO SCH (08:47)
[2022-01-15] MEDS: Warfarin 5 MG Tab PO SCH (12:49)
[2022-01-15] MEDS: Donepezil 10 MG Tab PO SCH (20:02)
[2022-01-15] MEDS: ClonazePAM 0.5 MG Tab PO SCH (20:02)
[2022-01-15] MEDS: Carbidopa/Levodopa 50-200 MG Tab.ER PO SCH (20:03)
[2022-01-15] MEDS: Latanoprost 0.005% Ophth Soln 2.5 ML Bottle EYELF SCH (20:04)
[2022-01-16] MEDS: Ipratropium 0.06% Nasal Spray 15 ML Bottle NAS SCH ×4 (05:07→12:18)
[2022-01-16] MEDS: Carbidopa/Levodopa 25-100 MG Tab PO SCH ×2 (07:13→12:40)
[2022-01-16] MEDS: Cholecalciferol (Vitamin D3) 25 MCG Tab PO SCH (08:50)
[2022-01-16] MEDS: Multivitamins with Iron/Calcium/Folic Acid/Minerals Tab PO SCH (08:50)
[2022-01-16] MEDS: Lutein [Lutein] 20 MG Capsule PO SCH (08:50)
[2022-01-16] MEDS: atorvaSTATin 20 MG Tab PO SCH (08:50)
[2022-01-16] MEDS: RUTIN 500 MG PO SCH (08:50)
[2022-01-16] MEDS: FLAX PO SCH (08:50)
[2022-01-16] MEDS: [UNRECOGNIZED DRUG - OTHER] PO SCH (08:50)
[2022-01-16] MEDS: Memantine 10 MG Tab PO SCH (08:50)
[2022-01-16] MEDS: Tamsulosin 0.4 MG Cap.ER PO SCH (08:50)
[2022-01-16] MEDS: FISH OIL PO SCH (08:50)
[2022-01-16] MEDS: BORAGE PO SCH (08:50)
[2022-01-16] MEDS: Atenolol 25 MG Tab PO SCH (08:51)
[2022-01-16 10:03] VITALS: BP 152/63; PULSE 70
[2022-01-16] MEDS: Warfarin 5 MG Tab PO SCH (12:40)
== END 2022-01-16 15:00 | disposition home health service (06) | DRG 300 ==
LOC: JP.ED 12:56 → JP.ICU 20:03
PROVIDERS: ADMIT Internal Medicine; ATTEND Internal Medicine
DX: R53.1 Weakness (principal); R79.1 Abnormal coagulation profile; I82.491 Acute embolism and thrombosis of other specified deep vein of right lower extremity; C34.90 Malignant neoplasm of unspecified part of unspecified bronchus or lung; J90 Pleural effusion, not elsewhere classified; I10 Essential (primary) hypertension; G47.30 Sleep apnea, unspecified; G47.33 Obstructive sleep apnea (adult) (pediatric); G32.0 Subacute combined degeneration of spinal cord in diseases classified elsewhere; E78.00 Pure hypercholesterolemia, unspecified; Z91.041 Radiographic dye allergy status; N40.0 Benign prostatic hyperplasia without lower urinary tract symptoms; Z66 Do not resuscitate; Z79.82 Long term (current) use of aspirin; Z20.822 Contact with and (suspected) exposure to COVID-19; K59.09 Other constipation; M54.9 Dorsalgia, unspecified; F03.90 Unspecified dementia, unspecified severity, without behavioral disturbance, psychotic disturbance, mood disturbance, and anxiety; G89.29 Other chronic pain; G20 Parkinson's disease; H91.90 Unspecified hearing loss, unspecified ear; Z91.013 Allergy to seafood; Z88.8 Allergy status to other drugs, medicaments and biological substances; Z79.899 Other long term (current) drug therapy; Z79.01 Long term (current) use of anticoagulants; Z87.891 Personal history of nicotine dependence
CPT/HCPCS: 36415; 71045 ×2; 71275; 80053; 85025; 85379; 85610; J1200; J2405; J3490 ×2; J7030; Q9967; U0002; 80048; 97162-GP; 97165-GO; 97530-GP; 97535-GP; A9270-GY; C9113; J1650

== ENCOUNTER 2022-01-20 11:30 | Emergency (ER) | payer MEDICARE ==
[2022-01-20 11:47] VITALS: BP 138/56; PULSE 69
== END 2022-01-20 14:00 | disposition home or self-care (01) ==
LOC: JP.ED 11:30
DX: L03.115 Cellulitis of right lower limb (principal); E78.00 Pure hypercholesterolemia, unspecified; I10 Essential (primary) hypertension; Z91.041 Radiographic dye allergy status; Z91.013 Allergy to seafood; Z79.82 Long term (current) use of aspirin; Z79.899 Other long term (current) drug therapy
CPT/HCPCS: 36415; 80048; 83605; 84145; 85025; 85610; 99283

== ENCOUNTER 2022-03-15 10:44 | Emergency (ER) | payer MEDICARE ==
[2022-03-15] MEDS ORDERED: Ketorolac 30 MG/ML SDV IVPUSH ONE (11:02)
[2022-03-15] MEDS ORDERED: Cyclobenzaprine 10 MG Tab PO ONE (11:02)
[2022-03-15 11:59] VITALS: BP 132/54; PULSE 57
== END 2022-03-15 12:37 | disposition home or self-care (01) ==
LOC: JP.ED 10:44
DX: M54.50 Low back pain, unspecified (principal); E78.00 Pure hypercholesterolemia, unspecified; I10 Essential (primary) hypertension; G20 Parkinson's disease; Z88.8 Allergy status to other drugs, medicaments and biological substances; Z91.041 Radiographic dye allergy status; Z91.013 Allergy to seafood; Z79.82 Long term (current) use of aspirin; Z79.899 Other long term (current) drug therapy
CPT/HCPCS: 96374; 99283; A9270; J1885

== ENCOUNTER 2022-03-23 16:54 | Emergency (ER) | payer MEDICARE ==
[2022-03-23] MEDS ORDERED: Sodium Chloride 0.9% 10 ML Syringe FLUSH PRN (17:07)
[2022-03-23 18:16] LABS: ESTIMATED GFR 75 mL/min (>60)
[2022-03-23 20:24] VITALS: BP 144/55; PULSE 94
== END 2022-03-23 20:20 | disposition home or self-care (01) ==
LOC: JP.ED 16:54
DX: S16.1XXA Strain of muscle, fascia and tendon at neck level, initial encounter (principal); S00.03XA Contusion of scalp, initial encounter; C34.90 Malignant neoplasm of unspecified part of unspecified bronchus or lung; G20 Parkinson's disease; J90 Pleural effusion, not elsewhere classified; R33.9 Retention of urine, unspecified; E78.00 Pure hypercholesterolemia, unspecified; I10 Essential (primary) hypertension; N40.0 Benign prostatic hyperplasia without lower urinary tract symptoms; Z91.013 Allergy to seafood; Z91.041 Radiographic dye allergy status; Z79.01 Long term (current) use of anticoagulants; Z79.899 Other long term (current) drug therapy; W18.30XA Fall on same level, unspecified, initial encounter
CPT/HCPCS: 36415; 70450; 71250; 72125; 74176; 76377; 80048; 81001; 82550; 85025; 85610; 87086; 93005; 99284

== ENCOUNTER 2022-03-30 08:28 | Emergency (ER) | payer MEDICARE ==
[2022-03-30] MEDS ORDERED: HYDROmorphone 0.5 MG/0.5 ML Syringe IM ONE (08:51)
[2022-03-30 09:16] VITALS: BP 149/66; PULSE 60
== END 2022-03-30 09:43 | disposition home or self-care (01) ==
LOC: JP.ED 08:28
DX: T83.091A Other mechanical complication of indwelling urethral catheter, initial encounter (principal); E78.00 Pure hypercholesterolemia, unspecified; I10 Essential (primary) hypertension; Z91.041 Radiographic dye allergy status; Z91.013 Allergy to seafood; Z91.048 Other nonmedicinal substance allergy status; Z79.899 Other long term (current) drug therapy
CPT/HCPCS: 51702; 81001; 96372; 99281; 99284; J1170

== ENCOUNTER 2022-04-23 14:22 | Emergency (ER) | payer MEDICARE ==
[2022-04-23 14:39] VITALS: BP 139/54; PULSE 67
[2022-04-23] MEDS ORDERED: Lidocaine 2% Jelly 10 ML Urojet MUCMEM ONE (15:19)
== END 2022-04-23 16:00 | disposition home or self-care (01) ==
LOC: JP.ED 14:22
DX: T83.098A Other mechanical complication of other urinary catheter, initial encounter (principal); E78.00 Pure hypercholesterolemia, unspecified; I10 Essential (primary) hypertension; Z87.891 Personal history of nicotine dependence; Z91.013 Allergy to seafood; Z91.041 Radiographic dye allergy status; Z79.01 Long term (current) use of anticoagulants; Z79.899 Other long term (current) drug therapy
CPT/HCPCS: 51702; 81001; 87086; 87088; 87186; 99282; 99283

== ENCOUNTER 2022-04-29 07:59 | Emergency (ER) | payer MEDICARE ==
[2022-04-29 08:23] VITALS: BP 121/48; PULSE 65
[2022-04-29] MEDS ORDERED: Sulfamethoxazole/Trimethoprim 800-160 MG Tab PO ONE (08:57)
== END 2022-04-29 09:30 | disposition home or self-care (01) ==
LOC: JP.ED 07:59
DX: T83.018A Breakdown (mechanical) of other urinary catheter, initial encounter (principal); N40.1 Benign prostatic hyperplasia with lower urinary tract symptoms; N39.0 Urinary tract infection, site not specified; B96.4 Proteus (mirabilis) (morganii) as the cause of diseases classified elsewhere; I10 Essential (primary) hypertension; E78.00 Pure hypercholesterolemia, unspecified; Z91.09 Other allergy status, other than to drugs and biological substances; Z91.013 Allergy to seafood; Z79.899 Other long term (current) drug therapy
CPT/HCPCS: 99283; A9270-GY

== ENCOUNTER 2022-07-06 13:06 | Emergency (ER) | payer MEDICARE ==
[2022-07-06 13:22] VITALS: BP 155/61; PULSE 58
== END 2022-07-06 15:40 | disposition home or self-care (01) ==
LOC: JP.ED 13:06
DX: T83.098A Other mechanical complication of other urinary catheter, initial encounter (principal); N40.1 Benign prostatic hyperplasia with lower urinary tract symptoms; N13.8 Other obstructive and reflux uropathy; G20 Parkinson's disease; C34.90 Malignant neoplasm of unspecified part of unspecified bronchus or lung; E78.00 Pure hypercholesterolemia, unspecified; I10 Essential (primary) hypertension; Z88.8 Allergy status to other drugs, medicaments and biological substances; Z91.013 Allergy to seafood; Z91.041 Radiographic dye allergy status; Z79.899 Other long term (current) drug therapy; Z79.01 Long term (current) use of anticoagulants
CPT/HCPCS: 81001; 87086; 99283